=== PATIENT | female | born 1965 | race Caucasian/White ===

== ENCOUNTER 2019-12-10 05:24 | Day surgery (SDC) | payer OTHER ==
[~2019-12-10] VITALS: Ht 160 cm; Wt 70.3 kg
[2019-12-10] MEDS ORDERED: BUPIVACAINE 0.25% ONE (06:18)
[2019-12-10] MEDS ORDERED: BUPIVACAINE/PF 0.5% ONE (06:18)
[2019-12-10 06:19] VITALS: BP 151/96
[2019-12-10] MEDS ORDERED: VANCOMYCIN 1,000 MG ONE (06:19)
[2019-12-10] MEDS ORDERED: BACITRACIN 50,000 UNIT ONE (06:19)
[2019-12-10] MEDS ORDERED: EPINEPHRINE 1 MG/ML, 1ML ONE (06:19)
[2019-12-10] MEDS ORDERED: ORPH100T PO (06:31)
[2019-12-10] MEDS ORDERED: ESTR-19 TD (06:31)
[2019-12-10] MEDS ORDERED: BIOT25005 PO (06:31)
[2019-12-10] MEDS ORDERED: CETI10TA32 PO (06:31)
[2019-12-10] MEDS ORDERED: ONDA4TAB7 PO (06:31)
[2019-12-10] MEDS ORDERED: LOSA50TA14 PO (06:31)
[2019-12-10] MEDS ORDERED: ALBU18HF INH (06:31)
[2019-12-10] MEDS ORDERED: OXYC-307 PO (06:31)
[2019-12-10] MEDS ORDERED: LORA-446 PO (06:31)
[2019-12-10] MEDS ORDERED: CHLORHEXIDINE 15 ML UDC MM STA (06:35)
[2019-12-10] MEDS ORDERED: FENTANYL PF 250 MCG/5ML ONE (06:35)
[2019-12-10] MEDS ORDERED: CHLORHEXIDINE 15 ML UDC ONE (06:35)
[2019-12-10] MEDS ORDERED: MIDAZOLAM 1 MG/ML, 2ML ONE (06:35)
[2019-12-10] MEDS ORDERED: LACTATED RINGERS 1,000 ML IV PRN (06:35)
[2019-12-10] MEDS ORDERED: SCOPOLAMINE 1MG PATCH TD SCH (06:43)
[2019-12-10] MEDS ORDERED: CEFAZOLIN 1,000 MG ONE (06:57)
[2019-12-10] MEDS ORDERED: ROCURONIUM 10 MG/ML,10ML ONE (06:57)
[2019-12-10] MEDS ORDERED: ONDANSETRON 2MG/ML, 2ML ONE (06:57)
[2019-12-10] MEDS ORDERED: SUCCINYLCHOLINE 20 MG/ML, 10ML ONE (06:57)
[2019-12-10] MEDS ORDERED: PROPOFOL 10 MG/ML, 20ML ONE (06:57)
[2019-12-10] MEDS ORDERED: DEXAMETHASONE 4 MG/ML, 1ML ONE (06:57)
[2019-12-10] MEDS ORDERED: KETAMINE 10 MG/ML, 20ML ONE (07:15)
[2019-12-10] MEDS ORDERED: HYDROmorphone 1 MG/ML, 1ML INJ IV PRN (07:30)
[2019-12-10] MEDS ORDERED: hydrALAzine 20 MG/ML, 1ML IV PRN (07:30)
[2019-12-10] MEDS ORDERED: ONDANSETRON 2MG/ML, 2ML IVPush PRN (07:30)
[2019-12-10] MEDS ORDERED: KETOROLAC 30 MG/1 ML IV PRN (07:30)
[2019-12-10] MEDS ORDERED: MEPERIDINE/PF 25MG/0.5ML IVPush PRN (07:30)
[2019-12-10] MEDS ORDERED: PROMETHAZINE 25 MG/ML, 1ML IV PRN (07:30)
[2019-12-10] MEDS ORDERED: METOCLOPRAMIDE 5 MG/ML, 2ML IV PRN (07:30)
[2019-12-10] MEDS ORDERED: ALBUTEROL SULFATE 2.5 MG/3 ML NPPB PRN (07:30)
[2019-12-10] MEDS ORDERED: OXYcodone 5 MG/5 ML ORAL.SOL UDC PO PRN (07:30)
[2019-12-10] MEDS ORDERED: DIAZEPAM 5 MG/ML, 2ML IV PRN ×2 (07:30)
[2019-12-10] MEDS ORDERED: LABETALOL 5MG/ML, 20ML IV PRN (07:30)
[2019-12-10] MEDS ORDERED: FENTANYL PF 100 MCG/2ML ONE ×2 (07:57→10:00)
[2019-12-10] MEDS ORDERED: BUPIVACAINE LIPOSOME/PF 10ML INFIL ONE (08:03)
[2019-12-10] MEDS ORDERED: BUPIVACAINE/PF 0.25% EPIDPUSH ONE (08:06)
[2019-12-10] MEDS ORDERED: D5%-0.9% NACL+KCL 20MEQ 1,000 ML IV SCH (09:30)
[2019-12-10] MEDS ORDERED: METHOCARBAMOL 750 MG TABLET PO PRN (09:30)
[2019-12-10] MEDS ORDERED: LORazepam 1MG TABLET PO PRN (09:30)
[2019-12-10] MEDS ORDERED: PHARMACY MAY ADJ FOR RENAL FX MC PRN (09:30)
[2019-12-10] MEDS ORDERED: ONDANSETRON 4 MG TABLET PO PRN (09:30)
[2019-12-10] MEDS ORDERED: CEFAZOLIN PMX 1GM/50ML 50 ML IVPB SCH (09:30)
[2019-12-10] MEDS ORDERED: HYDROcodone/APAP 10/325 MG TABLET PO PRN (09:30)
[2019-12-10] MEDS ORDERED: PROMETHAZINE 25 MG/ML, 1ML IM PRN (09:30)
[2019-12-10] MEDS ORDERED: ESTRADIOL 0.05 MG TD SCH (09:30)
[2019-12-10] MEDS ORDERED: morphine SULFATE 10 MG/ML, 1ML IVPush PRN (09:30)
[2019-12-10] MEDS ORDERED: KETOROLAC 30 MG/1 ML ONE (09:55)
[2019-12-10] MEDS ORDERED: OXYcodone/APAP 10/325MG TABLET PO SCH (10:00)
[2019-12-10] MEDS: FENTANYL PF 100 MCG/2ML IV PRN ×2 (10:02→10:12)
[2019-12-10] MEDS ORDERED: OXYcodone 5 MG/5 ML ORAL.SOL UDC ONE (10:06)
[2019-12-10] MEDS ORDERED: ALBUTEROL HFA 90 MCG/SPRAY INH SCH (11:00)
[2019-12-10] MEDS ORDERED: HYDROmorphone 1 MG/ML, 1ML INJ ONE (11:40)
[2019-12-10] MEDS ORDERED: ORPHENADRINE CITRATE 100 MG PO SCH (21:00)
[2019-12-10] MEDS ORDERED: SODIUM CHLORIDE FLUSH 10ML SYR IVF SCH (21:00)
[2019-12-11] MEDS ORDERED: TEMPLATE NON-FORMULARY MED. (Biotin** 10,000 MG) PO SCH (09:00)
[2019-12-11] MEDS ORDERED: CETIRIZINE HCL 10 MG PO SCH (09:00)
[2019-12-11] MEDS ORDERED: LOSARTAN 50MG TABLET PO SCH (09:00)
== END 2019-12-10 13:30 | disposition home or self-care (01) ==
LOC: OUT 05:24
PROVIDERS: ATTEND Neurological Surgery
DX: M51.16 Intervertebral disc disorders with radiculopathy, lumbar region (principal); M48.061 Spinal stenosis, lumbar region without neurogenic claudication; M21.371 Foot drop, right foot; I10 Essential (primary) hypertension; J44.9 Chronic obstructive pulmonary disease, unspecified; F17.210 Nicotine dependence, cigarettes, uncomplicated; Z79.891 Long term (current) use of opiate analgesic; Z79.899 Other long term (current) drug therapy; Z82.5 Family history of asthma and other chronic lower respiratory diseases
CPT/HCPCS: 63030; 63035; 72100; J0171; J0330; J0690; J1100; J1170; J1885; J2250; J2405; J2704; J3010; J3370; J7120